=== PATIENT | male | born 1975 | race Caucasian/White ===

== ENCOUNTER 2022-01-04 12:54 | Outpatient (CLI) | payer BC, SELFPAY ==
[2022-01-04 14:25] LABS: Chloride* 102 mmol/L (96-114)
[2022-01-04 14:26] LABS: Potassium* 4.9 mmol/L (3.6-5.1); Sodium* 138 mmol/L (135-149)
[2022-01-04 14:28] LABS: Carbon Dioxide* 27 mmol/L (20-32); Cholesterol* 241 mg/dL (90-199); Creatinine* 1.1 mg/dL (0.5-1.5); Estimated Glomerular Filt Rate 84 ml/min
[2022-01-04 14:29] LABS: Blood Urea Nitrogen* 17 mg/dL (5-24); Calcium* 9.5 mg/dL (8.4-10.6); Glucose* 93 mg/dL (60-115); HDL Cholesterol* 61 mg/dL (>=40); LDL Cholesterol Calculated 136 mg/dL (<100); Triglycerides* 221 mg/dL (40-149)
[2022-01-05 19:41] LABS: Testosterone, Adult Male 431 ng/dL (300-890)
== END 2022-01-04 12:55 | disposition home or self-care (01) ==
PROVIDERS: PCP Family Medicine; Visit Provider Family Medicine
DX: R68.82 Decreased libido (principal); E78.5 Hyperlipidemia, unspecified
CPT/HCPCS: 80048; 80061; 84403

== ENCOUNTER 2023-06-13 07:58 | Outpatient (CLI) | payer BC, SELFPAY ==
--- NOTE | 2023-06-13 09:16 | W.ANESCHARGE ---
Anesthesia Charges Start Date/Time Anesthesia Start Date: 06/13/23 Anesthesia Start Time: 08:35 Stop Date/Time Anesthesia Stop Date: 06/13/23 Anesthesia Stop Time: 09:13
--- NOTE | 2023-06-13 09:30 | W.ANESCHARGE ---
Anesthesia Charges Start Date/Time Anesthesia Start Date: 06/13/23 Anesthesia Start Time: 08:35 Stop Date/Time Anesthesia Stop Date: 06/13/23 Anesthesia Stop Time: 09:13
== END 2023-06-13 07:59 | disposition home or self-care (01) ==
PROVIDERS: PCP Family Medicine; Visit Provider Surgery
DX: Z12.11 Encounter for screening for malignant neoplasm of colon (principal); K57.30 Diverticulosis of large intestine without perforation or abscess without bleeding
CPT/HCPCS: 00811; 00812; 45378; J2704

== ENCOUNTER 2024-10-16 09:39 | Outpatient (CLI) | payer BC, SELFPAY | END 2024-10-16 09:40 | disposition home or self-care (01) | PROVIDERS: PCP Family Medicine; Visit Provider Family Medicine | DX: E78.2 Mixed hyperlipidemia (principal); R68.82 Decreased libido | CPT/HCPCS: 80048; 80061 ==